=== PATIENT | male | born 1960 | race Caucasian/White ===

== ENCOUNTER 2016-10-01 08:11 | Inpatient (IN) | payer BC, MEDICARE ==
[2016-10-01] MEDS ORDERED: SODIUM CHLORIDE 0.9% 1,000 ML IV STA (08:22)
[2016-10-01] MEDS ORDERED: KETOROLAC 30 MG/ML 1 ML VIAL IVP STA (08:23)
[2016-10-01] MEDS ORDERED: ORPHENADRINE 30 MG/ML 2 ML VIAL IVP STA (08:23)
[2016-10-01] MEDS ORDERED: HYDROmorphone 1 MG/ML 1 ML SYRINGE IVP STA ×2 (08:23→11:17)
--- NOTE | 2016-10-01 08:37 | ED ---
Lower Extremity Injury HPI - General Source: patient, EMS, RN notes reviewed, old records reviewed Mode of arrival: EMS Limitations: no limitations <Angie Jimenez - Last Filed: 10/01/16 11:37> <Tino Ruggiero - Last Filed: 10/01/16 15:10> - General Chief Complaint: Extremity Injury, Lower Stated Complaint: Hip Pain Time Seen by Provider: 10/01/16 08:12 - History of Present Illness Initial Comments: Physical is a 56-year-old male presenting to the emergency Department chief complaint of left hip pain. Patient reports that yesterday he was walking and felt a sudden twinge of pain at that time. Patient reports that over the night and this morning became progressively worse. He reports that is worse with range of motion. He denies any previous hip fractures or injuries. 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 He reports he takes it faithfully. Patient has never been to this emergency department. Patient reports the pain will all of a sudden start to be established stabbing and shooting pain. Patient denies any recent fever or chills, chest pain, shortness of breath. All of his pain is located deep within the left hip. Denies any redness or swelling around the hip or leg. Patient arrived via EMS and was are any given 100 mics of fentanyl. (Angie Jimenez) - Related Data Home Medications Medication Instructions Recorded Confirmed Aspirin 81 mg PO DAILY 10/01/16 10/01/16 Atorvastatin [Lipitor] 80 mg PO DAILY 10/01/16 10/01/16 Carisoprodol [Soma] 700 mg PO QID 10/01/16 10/01/16 Cyanocobalamin/Folic AC/Vit B6 1 tab PO DAILY 10/01/16 10/01/16 [Fabb Tablet] Enalapril [Vasotec] 5 mg PO DAILY 10/01/16 10/01/16 Fenofibrate 145 mg PO DAILY 10/01/16 10/01/16 Lansoprazole 30 mg PO DAILY 10/01/16 10/01/16 Warfarin Sodium [Coumadin] 4 mg PO Q48H 10/01/16 10/01/16 Warfarin [Coumadin] 3 mg PO Q2D 10/01/16 10/01/16 Zolpidem [Ambien] 10 mg PO HS 10/01/16 10/01/16 oxyCODONE HCL 15 mg PO Q4H PRN 10/01/16 10/01/16 oxyCODONE HCL [OxyCONTIN] 40 mg PO Q6HR 10/01/16 10/01/16 Allergies Allergy/AdvReac Type Severity Reaction Status Date / Time morphine Allergy Anaphylaxis Verified 10/01/16 11:44 Review of Systems ROS Other: All systems not noted in ROS Statement are negative. <TonyAngie - Last Filed: 10/01/16 11:37> ROS Other: All systems not noted in ROS Statement are negative. <AlexandratonyasayraTino - Last Filed: 10/01/16 15:10> ROS Statement: Those systems with pertinent positive or pertinent negative responses have been documented in the HPI. Past Medical History Past Medical History: COPD, Diabetes Mellitus, Deep Vein Thrombosis (DVT), Hyperlipidemia, Hypertension, Pneumonia Additional Past Medical History / Comment(s): DVT x6, lupus, granulomas, "kidneys put out too much microalbumin", diet controlled DM History of Any Multi-Drug Resistant Organisms: None Reported Additional Past Surgical History / Comment(s): 3 right knee ortho, 3 right shoulder ortho, lower back, 2 hernia repairs, malena fundoplication Past Psychological History: No Psychological Hx Reported Smoking Status: Current every day smoker Past Alcohol Use History: None Reported Past Drug Use History: None Reported <TonyAngie steiner - Last Filed: 10/01/16 11:37> General Exam Limitations: no limitations General appearance: alert, in no apparent distress Head exam: Present: atraumatic, normocephalic, normal inspection Eye exam: Present: normal appearance, PERRL, EOMI. Absent: scleral icterus, conjunctival injection, periorbital swelling ENT exam: Present: normal exam, mucous membranes moist Neck exam: Present: normal inspection. Absent: tenderness, meningismus, lymphadenopathy Respiratory exam: Present: normal lung sounds bilaterally Cardiovascular Exam: Present: regular rate, normal rhythm, normal heart sounds. Absent: systolic murmur, diastolic murmur, rubs, gallop, clicks GI/Abdominal exam: Present: soft, normal bowel sounds. Absent: distended, tenderness, guarding, rebound, rigid Extremities exam: Present: normal inspection, full ROM, normal capillary refill. Absent: tenderness, pedal edema, joint swelling, calf tenderness Left Hip exam: Present: normal inspection. Absent: full ROM (Unable to test range of motion is patient is complaining of severe pain.), tenderness, swelling, abrasion Upper Leg exam: Present: normal inspection, full ROM, tenderness (Patient reports tenderness deep within the hip joint.) Knee exam: Present: normal inspection, full ROM Lower Leg exam: Present: normal inspection, full ROM Ankle exam: Present: normal inspection, full ROM Foot/Toe exam: Present: normal inspection, full ROM Neurovascular tendon exam: Present: no vascular compromise Back exam: Present: normal inspection Neurological exam: Present: alert, oriented X3, CN II-XII intact Psychiatric exam: Present: normal affect, normal mood Skin exam: Present: warm, dry, intact, normal color. Absent: rash <Angie Jimenez - Last Filed: 10/01/16 11:37> <Tino Ruggiero - Last Filed: 10/01/16 15:10> - General Exam Comments Initial Comments: This is a 56-year-old male. No acute distress. (Angie Jimenez) Course <Angie Jimenez - Last Filed: 10/01/16 11:37> <Tino Ruggiero - Last Filed: 10/01/16 15:10> Vital Signs 10/01/16 10/01/16 10/01/16 08:13 09:14 10:57 Temperature 98.4 F 100.5 F H Pulse Rate 75 80 81 Respiratory 24 20 Rate Blood Pressure 148/89 157/87 149/103 O2 Sat by Pulse 97 97 96 Oximetry 10/01/16 12:24 Temperature Pulse Rate 82 Respiratory 18 Rate Blood Pressure 152/79 O2 Sat by Pulse 95 Oximetry - Reevaluation(s) Reevaluation #1: 10/01/16 08:48 Patient was going to get an x-ray at this time. Patient refused to transfer from the [facility] bed to the x-ray table. X-ray brought him back here immediately did have to transfer for the patient to a portable x-ray bed. Patient was extremely difficult to transfer, and was yelling out in pain. During the transfer patient grabbed the x-ray tech. 10/01/16 08:49 (Angie Jimenez) Reevaluation #2: 10/01/16 11:10 Patient is reevaluated this time and noted have a fever 100.5. Patient be given Tylenol. Discussed with Dr. Gomez. He called Dr. Hoff who will likely come in for evaluation. (Angie Jimenez) Medical Decision Making - Lab Data Result diagrams: 10/01/16 08:24 10/01/16 08:24 - Radiology Data Radiology results: report reviewed <Angie Jimenez - Last Filed: 10/01/16 11:37> - Lab Data Result diagrams: 10/01/16 08:24 10/01/16 08:24 <Tino Ruggiero - Last Filed: 10/01/16 15:10> - Medical Decision Making This is a 56-year-old male chief complaint of left hip pain for the past seen half. He had no falls or specific injury. He was walking yesterday felt a twinge of pain in his been progressive ever since. Maps report was ran and patient does have an extensive history of using pain medication including oxycodone and OxyContin. Patient reports that this pain is different than all of his previous pain. He also has history of DVTs is on Coumadin. Patient is therapeutic with INR.. Upper ultrasound was reviewed and negative for DVT. Chest x-ray of left hip and pelvis were negative for any fracture. Patient did present with a mild fever, CT pelvis and hip was obtained with contrast. Evidence of femoral acetabular impingement. Patient case assessment Dr. Gomez. Discussed this with Dr. Hoff. His is concern for patient may have a left hip septic arthritis, as patient has an elevated white blood cell count of 15.4.. Patient will be started on Rocephin and vancomycin. Patient also be given steroids every 6 [address]. And pain management. Dr. Hoff's informed of this case by his PA Brett Fernandez. They request an MRI of the left hip without contrast. Patient will be admitted to [facility] call Dr. Maddox. ( Angie Jimenez) 56-year-old male resents with severe left hip pain. Pain was atraumatic. Patient has never had left pain before. He was walking on the pain, no specific injury or overuse. Patient does report fever last night. On initial presentation patient is in severe pain localized to the left hip. Distal pulses are intact, there is no external signs of trauma or erythema. Patient is unable to move his hip even slightly. X-rays obtained showed no acute process. DVT is obtained as the patient does have history of left lower extremity DVT in the past and is on Coumadin. And ultimately CT of the hip is ordered which shows show a femoral acetabular impingement. Is unlikely that his pain is solely from impingement. Laboratory studies reveal elevated white blood cell count. He does have a fever while in the emergency department. Case is discussed with orthopedic surgery and concern for septic arthritis is addressed. I did make an attempt to call interventional radiology for arthrocentesis. Arthrocentesis is done by orthopedic surgery at this institution. Patient is started on IV antibiotics including vancomycin and ceftriaxone. Cultures were obtained prior to antibiotics. Orthopedics placed on consult, patient is admitted to internal medicine. Diagnosis: Left hip pain, concern for septic arthritis (Tino Ruggiero) - Lab Data Lab Results 10/01/16 10/01/16 10/01/16 Range/Units 08:24 08:24 08:24 WBC 15.4 H (3.8-10.6) k/uL RBC 4.47 (4.30-5.90) m/uL Hgb 13.2 (13.0-17.5) gm/dL Hct 39.5 (39.0-53.0) % MCV 88.4 (80.0-100.0) fL MCH 29.6 (25.0-35.0) pg MCHC 33.5 (31.0-37.0) g/dL RDW 14.8 (11.5-15.5) % Plt Count 338 (150-450) k/uL Neutrophils % 77 % Lymphocytes % 15 % Monocytes % 5 % Eosinophils % 1 % Basophils % 1 % Neutrophils # 11.9 H (1.3-7.7) k/uL Lymphocytes # 2.3 (1.0-4.8) k/uL Monocytes # 0.8 (0-1.0) k/uL Eosinophils # 0.2 (0-0.7) k/uL Basophils # 0.1 (0-0.2) k/uL PT 28.1 H (9.0-12.0) sec INR 2.9 H (<1.2) APTT 40.3 H (22.0-30.0) sec Sodium 142 (137-145) mmol/L Potassium 4.0 (3.5-5.1) mmol/L Chloride 106 (98-107) mmol/L Carbon Dioxide 25 (22-30) mmol/L Anion Gap 11 mmol/L BUN 7 L (9-20) mg/dL Creatinine 0.99 (0.66-1.25) mg/dL Est GFR (MDRD) Af Amer >60 (>60 ml/min/1.73 sqM) Est GFR (MDRD) Non-Af >60 (>60 ml/min/1.73 sqM) Glucose 126 H (74-99) mg/dL Calcium 9.4 (8.4-10.2) mg/dL Lactate Dehydrogenase (313-618) U/L Urine Color Urine Appearance (Clear) Urine pH (5.0-8.0) Ur Specific [place] (1.001-1.035) Urine Protein (Negative) Urine Glucose (UA) (Negative) Urine Ketones (Negative) Urine Blood (Negative) Urine Nitrite (Negative) Urine Bilirubin (Negative) Urine Urobilinogen (<2.0) mg/dL Ur Leukocyte Esterase (Negative) Urine Opiates Screen (NotDetected) Ur Oxycodone Screen (NotDetected) Urine Methadone Screen (NotDetected) Ur Propoxyphene Screen (NotDetected) Ur Barbiturates Screen (NotDetected) U Tricyclic Antidepress (NotDetected) Ur Phencyclidine Scrn (NotDetected) Ur Amphetamines Screen (NotDetected) U Methamphetamines Scrn (NotDetected) U Benzodiazepines Scrn (NotDetected) Urine Cocaine Screen (NotDetected) U Marijuana (THC) Screen (NotDetected) 10/01/16 10/01/16 10/01/16 Range/Units 08:24 09:07 09:07 WBC (3.8-10.6) k/uL RBC (4.30-5.90) m/uL Hgb (13.0-17.5) gm/dL Hct (39.0-53.0) % MCV (80.0-100.0) fL MCH (25.0-35.0) pg MCHC (31.0-37.0) g/dL RDW (11.5-15.5) % Plt Count (150-450) k/uL Neutrophils % % Lymphocytes % % Monocytes % % Eosinophils % % Basophils % % Neutrophils # (1.3-7.7) k/uL Lymphocytes # (1.0-4.8) k/uL Monocytes # (0-1.0) k/uL Eosinophils # (0-0.7) k/uL Basophils # (0-0.2) k/uL PT (9.0-12.0) sec INR (<1.2) APTT (22.0-30.0) sec Sodium (137-145) mmol/L Potassium (3.5-5.1) mmol/L Chloride (98-107) mmol/L Carbon Dioxide (22-30) mmol/L Anion Gap mmol/L BUN (9-20) mg/dL Creatinine (0.66-1.25) mg/dL Est GFR (MDRD) Af Amer (>60 ml/min/1.73 sqM) Est GFR (MDRD) Non-Af (>60 ml/min/1.73 sqM) Glucose (74-99) mg/dL Calcium (8.4-10.2) mg/dL Lactate Dehydrogenase 400 (313-618) U/L Urine Color Yellow Urine Appearance Clear (Clear) Urine pH 7.0 (5.0-8.0) Ur Specific [place] 1.009 (1.001-1.035) Urine Protein Trace H (Negative) Urine Glucose (UA) Negative (Negative) Urine Ketones Negative (Negative) Urine Blood Negative (Negative) Urine Nitrite Negative (Negative) Urine Bilirubin Negative (Negative) Urine Urobilinogen <2.0 (<2.0) mg/dL Ur Leukocyte Esterase Negative (Negative) Urine Opiates Screen Not Detected (NotDetected) Ur Oxycodone Screen Detected H (NotDetected) Urine Methadone Screen Not Detected (NotDetected) Ur Propoxyphene Screen Not Detected (NotDetected) Ur Barbiturates Screen Not Detected (NotDetected) U Tricyclic Antidepress Not Detected (NotDetected) Ur Phencyclidine Scrn Not Detected (NotDetected) Ur Amphetamines Screen Not Detected (NotDetected) U Methamphetamines Scrn Not Detected (NotDetected) U Benzodiazepines Scrn Not Detected (NotDetected) Urine Cocaine Screen Not Detected (NotDetected) U Marijuana (THC) Screen Not Detected (NotDetected) - Radiology Data There is no acute fracture dislocation in the pelvis or left hip. Doppler ultrasound negative for DVT. CT pelvis with contrast was performed.Severe multilevel degenerative disc disease with bilateral pars defects at L5. Canal stenosis L3 4 L4 through 5 disc bulging suspected. Femoral acetabulum impingement. There is abnormal lucency within the L1 vertebral body. Systolically partially on exam. Recommended short-term follow-up with MRI to exclude interosseous lesion. Hemangioma also within the differential diagnosis. (Angie Jimenez) Disposition Time of Disposition: 11:35 <Angie Jimenez - Last Filed: 10/01/16 11:37> <Tino Ruggiero - Last Filed: 10/01/16 15:10> Clinical Impression: Left hip pain, Fever Disposition: ADMITTED IP TO THIS [facility] Condition: Stable
[2016-10-01 08:42] LABS: Basophils # (A) 0.1 k/uL (0-0.2); Basophils % (A) 1 %; CH 29.6; CHCM 33.7; Eosinophils # (A) 0.2 k/uL (0-0.7); Eosinophils % (A) 1 %; HCT 39.5 % (39.0-53.0); HDW 2.77; HGB 13.2 gm/dL (13.0-17.5); Luc # (Auto) 0.16; Luc % (Auto) 1; Lymphocytes # (A) 2.3 k/uL (1.0-4.8); Lymphocytes % (A) 15 %; MCH 29.6 pg (25.0-35.0); MCHC 33.5 g/dL (31.0-37.0); MCV 88.4 fL (80.0-100.0); Monocytes # (A) 0.8 k/uL (0-1.0); Monocytes % (A) 5 %; Neutrophils # (A) 11.9 k/uL (1.3-7.7); Neutrophils % (A) 77 %; RBC 4.47 m/uL (4.30-5.90); RDW 14.8 % (11.5-15.5); WBC 15.4 k/uL (3.8-10.6); WBC (Perox) 15.03
[2016-10-01 08:56] LABS: Anion Gap 11 mmol/L; Blood Urea Nitrogen 7 mg/dL (9-20); Calcium 9.4 mg/dL (8.4-10.2); Carbon Dioxide 25 mmol/L (22-30); Chloride 106 mmol/L (98-107); Glucose 126 mg/dL (74-99); Non-African American GFR(MDRD) >60 (>60 ml/min/1.73 sqM); Sodium 142 mmol/L (137-145)
[2016-10-01 09:04] LABS: INR 2.9 (<1.2); Partial Thromboplastin Time 40.3 sec (22.0-30.0); Prothrombin Time 28.1 sec (9.0-12.0)
[2016-10-01] MEDS ORDERED: RX INFO: IV CONTRAST WAS GIVEN 1 EACH MISC MISCELLANE PRN (09:05)
--- NOTE | 2016-10-01 09:15 | XR ---
EXAMINATION TYPE: XR Hip LT and AP Pelvis DATE OF EXAM: 10/01/2016 COMPARISON: NONE HISTORY: Pain TECHNIQUE: A single AP view of the pelvis is obtained. Two views of the left hip are obtained. FINDINGS: There is no acute fracture/dislocation evident in the pelvis. The hip and sacroiliac join ts appear symmetric and unremarkable. The overlying soft tissue appears unremarkable. Calcifications in the pelvis are likely vascular. Hypertrophic and degenerative change lower lumbar spine. Two views of left hip show no acute fracture or dislocation. No focal lytic or sclerotic lesion seen in the proximal left femur. The overlying soft tissue is unremarkable. Nonspherical morphology of t he femoral head can occasionally be seen with femoral acetabular impingement. IMPRESSION: There is no acute fracture or dislocation in the pelvis or left hip.
[2016-10-01 09:46] LABS: Appearance,Urine Clear (Clear); Bilirubin,Urine Negative (Negative); Glucose,Urine (UA) Negative (Negative); Ketones,Urine Negative (Negative); Leukocyte Esterase,Urine Negative (Negative); Nitrite,Urine Negative (Negative); Protein,Urine Trace (Negative); Specific Gravity,Urine 1.009 (1.001-1.035); UA Billing (MACRO vs. MICRO) CHEM; Urobilinogen,Urine <2.0 mg/dL (<2.0)
--- NOTE | 2016-10-01 09:46 | US ---
EXAMINATION TYPE: US venous doppler duplex LE LT DATE OF EXAM: 10/01/2016 8:26 AM COMPARISON: NONE CLINICAL HISTORY: Pain. SIDE PERFORMED: Right TECHNIQUE: The lower extremity deep venous system is examined utilizing real time linear array sonog viri with graded compression, doppler sonography and color-flow sonography. VESSELS IMAGED: External Iliac Vein (EIV) Common Femoral Vein Deep Femoral Vein Greater Saphenous Vein * Femoral Vein Popliteal Vein Small Saphenous Vein * Proximal Calf Veins (* superficial vessels) Left Leg: Negative for DVT IMPRESSION: 1. No diagnostic evidence of DVT as visualized.
--- NOTE | 2016-10-01 10:31 | CT ---
EXAMINATION TYPE: CT pelvis w con DATE OF EXAM: 10/01/2016 COMPARISON: NONE HISTORY: Left sided hip/groin pain CT DLP: 730.50 mGycm Automated exposure control for dose reduction was used. CONTRAST: Performed with IV Contrast, patient injected with 100 mL of Omnipaque 300. FINDINGS: Visualized bowel gas pattern nonspecific. Shotty adenopathy in the inguinal regions bilaterally. No free fluid. Bladder is normal appearance. Vascular phleboliths in the pelvis. Degenerative change of the spine with vacuum disc noted. Facet arthropathy noted. Spina bifida occulta left bilateral par s defects. Nonspherical morphology of the femoral head suggests femoral acetabular impingement. 1 mild L4 not well seen. Correlate for previous surgery involving the right posterior elements of L4. IMPRESSION: 1. Severe multilevel degenerative disc disease with bilateral pars defects L5. Canal stenosis L3-for L4-5 disc bulging suspected. 2. Femoral acetabular impingement. 3. There is abnormal lucency within the L1 vertebral body. Systolic partially included on exam. Recom mend short-term follow-up MRI to exclude intraosseous lesion. Hemangioma also in the differential dov gnosis.
[2016-10-01] MEDS ORDERED: ACETAMINOPHEN TAB 500 MG TAB PO STA (11:10)
[2016-10-01] MEDS ORDERED: NALOXONE 0.4 MG/ML 1 ML VIAL IV PRN ×2 (11:22→13:38)
[2016-10-01] MEDS ORDERED: HYDROmorphone 1 MG/ML 1 ML SYRINGE IV PRN (11:22)
[2016-10-01] MEDS ORDERED: ACETAMINOPHEN TAB 325 MG TAB PO PRN (11:22)
[2016-10-01] MEDS ORDERED: ONDANSETRON 4 MG/2 ML VIAL IVP PRN (11:22)
[2016-10-01] MEDS: SODIUM CHLORIDE 0.9% 1,000 ML IV SCH ×2 (11:24→23:30)
[2016-10-01] MEDS ORDERED: methylPREDNISolone SOD SUCCI 125 MG/2 ML VIAL IV STA (11:27)
[2016-10-01] MEDS ORDERED: IV VANCOMYCIN PER PHARMACY 1 EACH MISC MISCELLANE PRN ×2 (11:27→15:10)
[2016-10-01] MEDS ORDERED: NICOTINE 21MG/24HR PATCH TRANSDERM STA (11:28)
[2016-10-01] MEDS ORDERED: VANCOMYCIN 1,500 MG in SODIUM CHLORIDE 0.9% 250 ML IVPB ONE (12:30)
[2016-10-01] MEDS ORDERED: ALPRAZolam 0.25 MG TAB PO PRN (13:41)
[2016-10-01 13:50] VITALS: BMI 26.6
[2016-10-01] MEDS: KETOROLAC 30 MG/ML 1 ML VIAL IVP PRN ×2 (13:50→19:08)
--- NOTE | 2016-10-01 15:03 | P.HPIM ---
History of Present Illness H&P Date: 10/01/16 Chief Complaint: Severe sudden onset left hip pain 56-year-old male with past medical history of lupus anticoagulant, and hypertension. Patient presented with sudden onset left groin pain sharp in nature 10 out of 10 in severity radiating to the left knee not associated with any injury pain gets worse with ambulation and weightbearing improves with immobilization. Patient denies any similar pains in the past. Reports that he was standing up last night when all of a sudden the pain hits him he tried to follow her through the night however pain persisted and Worsening for Which Psych from the Hospital. This Pain Was Associated Initially with Some Tingling in His Left Lower Leg However That Has Resolved, despite That She Still Reporting Some Subjective Weakness in His Left hip muscles particularly that could be due to fear of pain. Patient reports associated subjective fever at home took his temperature was around 99 Fahrenheit and he reports some chills otherwise he denies any skin changes any swelling in the area or any traumas. In the emergency department patient underwent venous duplex ultrasound of the lower left lower extremity which showed no evidence of acute DVT, had left hip x -ray showed no acute process, computed tomography scan of the pelvis showed multilevel degenerative disc disease with bilateral pars defects around L5 and canal stenosis L3-4, with suspected disc bulging around L4 5, also showed femoral acetabular impingement with abnormal lucency over L1 vertebral body. Patient reporting fevers and having severe pain in his left hip limiting range of motion septic arthritis was also suspected, blood cultures were obtained, hip arthrocentesis was not performed awaiting interventional radiology, vancomycin was started, or to consultation is pending. Otherwise patient does report chronic diffused joint pain for which she takes multiple pain medications including Soma, oxycodone. Patient did have a documented fever in the ER with a temperature of 100.5 Review of Systems Constitutional: Patient reports fever,but no chills, no night sweating, no significant weight changes Eyes: Patient reports no visual changes, no eye pain ENT: Patient reports no ear pain, no rhinorrhea, no sore throat Cardiovascular: Patient reports no chest pain, no exertional dyspnea, no peripheral leg edema, no orthopnea, no paroxysmal nocturnal dyspnea Respiratory:Patient reports no cough, no wheezing, no shortness of breath Gastrointestinal: Patient reports no diarrhea, no constipation, no nausea no vomiting, no abdominal pain Genitourinary: Patient reports no dysuria, no hematuria, no changes in urinary habits, no genital lesions Musculoskeletal: Patient reports no muscle pain, , but does report diffuse joint pain, and left hip pain as in HPI Psychiatric: Patient reports no changes in mood or memory, no suicidal ideation , no anxiety Endocrine: Patient reports no heat intolerance, no cold intolerance, no excessive thirst, no polyuria Neurological: Patient reports no focal neurologic deficits, no weakness, no numbness. He does report possible tingling in his left leg that has resolved Hem/Lymphatic: Patient reports no bleeding tendency, no bruising, no swollen lymph glands Allergic/Immun: Patient reports no recent allergic reactions Skin: Patient reports no rashes, no pruritis, no ulcers Past Medical History Past Medical History: COPD, Diabetes Mellitus, Deep Vein Thrombosis (DVT), Hyperlipidemia, Hypertension, Pneumonia Additional Past Medical History / Comment(s): DVT x6, lupus, granulomas, "kidneys put out too much microalbumin", diet controlled DM History of Any Multi-Drug Resistant Organisms: None Reported Additional Past Surgical History / Comment(s): 3 right knee ortho, 3 right shoulder ortho, lower back, 2 hernia repairs, malena fundoplication Past Psychological History: No Psychological Hx Reported Smoking Status: Current every day smoker Past Alcohol Use History: None Reported Past Drug Use History: None Reported Additional History: Patient is retired since 2004 he lives with his son and - Past Family History Mother Brother(s) Family Medical History: Cancer Brother(s) Additional Family Medical History / Comment(s): Non-Hodgkin lymphoma Medications and Allergies Home Medications and Allergies Comment(s): Home medications were reviewed Home Medications Medication Instructions Recorded Confirmed Type Aspirin 81 mg PO DAILY 10/01/16 10/01/16 History Atorvastatin [Lipitor] 80 mg PO DAILY 10/01/16 10/01/16 History Carisoprodol [Soma] 700 mg PO QID 10/01/16 10/01/16 History Cyanocobalamin/Folic AC/Vit B6 1 tab PO DAILY 10/01/16 10/01/16 History [Fabb Tablet] Enalapril [Vasotec] 5 mg PO DAILY 10/01/16 10/01/16 History Fenofibrate 145 mg PO DAILY 10/01/16 10/01/16 History Lansoprazole 30 mg PO DAILY 10/01/16 10/01/16 History Warfarin Sodium [Coumadin] 4 mg PO Q48H 10/01/16 10/01/16 History Warfarin [Coumadin] 3 mg PO Q2D 10/01/16 10/01/16 History Zolpidem [Ambien] 10 mg PO HS 10/01/16 10/01/16 History oxyCODONE HCL 15 mg PO Q4H PRN 10/01/16 10/01/16 History oxyCODONE HCL [OxyCONTIN] 40 mg PO Q6HR 10/01/16 10/01/16 History Allergies Allergy/AdvReac Type Severity Reaction Status Date / Time morphine Allergy Anaphylaxis Verified 10/01/16 11:44 Physical Exam Vitals: Vital Signs Temp Pulse Pulse Resp BP BP Pulse Ox 10/01/16 13:02 98.6 F 84 16 144/85 96 10/01/16 12:24 82 18 152/79 95 10/01/16 10:57 100.5 F H 81 149/103 96 10/01/16 09:14 80 20 157/87 97 10/01/16 08:13 98.4 F 75 24 148/89 97 Intake and Output 09/30/16 10/01/16 10/01/16 22:59 06:59 14:59 Other: Weight 79.379 kg Patient Weight 10/02/16 06:59 Weight 79.379 kg Constitutional: No acute distress, conversant, pleasant Eyes: Anicteric sclerae, moist conjunctiva, no lid-lag Pupils equal round reactive to light ENMT: NC/AT Oropharynx clear, no erythema, exudates Neck: Supple, FROM, no masses, or JVD No carotid bruits No thyromegaly Lungs: Clear to auscultation Clear to percussion Normal respiratory effort, no accessory muscle use Cardiovascular: Heart regular in rate and rhythm, No murmurs, gallops, or rubs No peripheral edema Abdominal: Soft Nontender, no guarding, rebound or rigidity Abdomen moving with respiration Normoactive bowel sounds No hepatomegaly, No splenomegaly No palpable mass No abdominal wall hernia noted Skin: Normal temperature, tone, texture, turgor No induration No subcutaneous nodules No rash, lesions No ulcers Extremities: No digital cyanosis No clubbing Pedal pulses intact and symmetrical Radial pulses intact and symmetrical Gait not examined, due to patient's severe left hip pain and inability to weight bear No calf tenderness Severe localized tenderness to palpation of the anterior left groin, no skin changes no warmth to the touch no open wounds no palpable masses in that area. Patient refused passive range of motion testing and his left hip due to fear of pain. Sitting up straight which worsened the pain due to stretching of back muscle, resting position for the patient was slight abduction of the left hip with external rotation. Right lower extremity is with full active range of motion with no limitations Psychiatric: Alert and oriented to person, place and time Appropriate affect Intact judgement Neuro Muscles Strength 5/5 in all 4 extremities except for the left lower extremity due to severe left hip pain Sensation to light touch grossly present throughout Cranial nerves II-XII grossly intact No focal sensory deficits Lymphatics: no palpable cervical or supraclavicular , or inguinal lymph nodes Results Results: Labs reviewed, imaging reviewed CBC & Chem 7: 10/01/16 08:24 10/01/16 08:24 Labs: Abnormal Lab Results - Last 24 Hours (Table) 10/01/16 10/01/16 10/01/16 Range/Units 08:24 08:24 08:24 WBC 15.4 H (3.8-10.6) k/uL Neutrophils # 11.9 H (1.3-7.7) k/uL PT 28.1 H (9.0-12.0) sec INR 2.9 H (<1.2) APTT 40.3 H (22.0-30.0) sec BUN 7 L (9-20) mg/dL Glucose 126 H (74-99) mg/dL Urine Protein (Negative) Ur Oxycodone Screen (NotDetected) 10/01/16 10/01/16 Range/Units 09:07 09:07 WBC (3.8-10.6) k/uL Neutrophils # (1.3-7.7) k/uL PT (9.0-12.0) sec INR (<1.2) APTT (22.0-30.0) sec BUN (9-20) mg/dL Glucose (74-99) mg/dL Urine Protein Trace H (Negative) Ur Oxycodone Screen Detected H (NotDetected) Thrombosis Risk Factor Assmnt - DVT/VTE Prophylaxis DVT/VTE Prophylaxis: Pharmacologic Prophylaxis ordered - Choose All That Apply Each Risk Factor Represents 3 Points: History of DVT/PE, Positive Lupus Anticoagulant Thrombosis Risk Factor Assessment Total Risk Factor Score: 6 Thrombosis Risk Factor Assessment Level: High Risk Assessment and Plan (1) Left hip pain Narrative/Plan: r/o septic arthritis on vancomycin blood cultures sent pending left hip arthrocentesis pending ortho evaluation pain control IVF hydration imagin results reviewed pending ESR and CRP Status: Acute (2) SIRS (systemic inflammatory response syndrome) Narrative/Plan: r/o left hip septic arthritis Status: Acute (3) Diabetes mellitus Narrative/Plan: dietary control check A1C Status: Chronic (4) Lupus anticoagulant disorder Narrative/Plan: continue with coumadin dosing by pharmacy Status: Chronic (5) DVT prophylaxis Narrative/Plan: coumadin dosing by pharmacy due to history of lupus anticoagulant Status: Acute (6) Chronic pain Narrative/Plan: continue home medications Status: Acute (7) Hypertension Narrative/Plan: continue lisinopril controlled Status: Chronic Plan: full code status Time with Patient: Greater than 30
[2016-10-01 15:31] LABS: Hemoglobin A1C 6.5 % (4.2-6.1)
[2016-10-01] MEDS: CARISOPRODOL 350 MG TAB PO SCH ×2 (15:32→20:09)
[2016-10-01] MEDS ORDERED: WARFARIN 2 MG TAB PO SCH (18:00)
[2016-10-01] MEDS ORDERED: CARISOPRODOL 350 MG TAB PO SCH (18:00)
[2016-10-01] MEDS: methylPREDNISolone SOD SUCCI 125 MG/2 ML VIAL IV SCH ×2 (18:18→23:29)
[2016-10-01] MEDS: oxyCODONE ER 20 MG TAB.ER.12H PO SCH ×2 (18:19→23:33)
[2016-10-01] MEDS: ATORVASTATIN 80 MG TAB PO SCH (20:08)
[2016-10-01] MEDS: VANCOMYCIN 1,500 MG in SODIUM CHLORIDE 0.9% 250 ML IVPB SCH (20:18)
[2016-10-01] MEDS ORDERED: ZOLPIDEM 10 MG TAB PO SCH (21:00)
[2016-10-01] MEDS ORDERED: diphenhydrAMINE 50 MG CAP PO SCH (21:00)
[2016-10-02] MEDS: KETOROLAC 30 MG/ML 1 ML VIAL IVP PRN ×2 (01:02→06:19)
[2016-10-02] MEDS: oxyCODONE ER 20 MG TAB.ER.12H PO SCH (05:30)
[2016-10-02] MEDS: methylPREDNISolone SOD SUCCI 125 MG/2 ML VIAL IV SCH ×2 (05:30→11:34)
[2016-10-02] MEDS: CARISOPRODOL 350 MG TAB PO SCH ×2 (05:31→10:31)
[2016-10-02] MEDS: ATORVASTATIN 80 MG TAB PO SCH (06:20)
[2016-10-02 07:30] LABS: Basophils % (A) 0 %; CH 29.7; CHCM 33.2; Eosinophils % (A) 0 %; HDW 2.71; HGB 11.9 gm/dL (13.0-17.5); Luc % (Auto) 1; Lymphocytes # (A) 1.4 k/uL (1.0-4.8); Lymphocytes % (A) 8 %; MCH 28.8 pg (25.0-35.0); MCHC 32.1 g/dL (31.0-37.0); Mean Platelet Volume 8.2; Monocytes # (A) 0.8 k/uL (0-1.0); Monocytes % (A) 5 %; Neutrophils # (A) 15.4 k/uL (1.3-7.7); Neutrophils % (A) 87 %; RBC 4.11 m/uL (4.30-5.90); WBC 17.8 k/uL (3.8-10.6); WBC (Perox) 19.29
[2016-10-02] MEDS ORDERED: PANTOPRAZOLE 40 MG TABLET PO SCH (07:30)
[2016-10-02 07:35] LABS: INR 2.4 (<1.2); Prothrombin Time 23.4 sec (9.0-12.0)
[2016-10-02 07:52] LABS: ALT 34 U/L (21-72); AST 28 U/L (17-59); Alkaline Phosphatase 52 U/L (38-126); Anion Gap 9 mmol/L; Blood Urea Nitrogen 10 mg/dL (9-20); Calcium 9.3 mg/dL (8.4-10.2); Carbon Dioxide 22 mmol/L (22-30); Chloride 111 mmol/L (98-107); Glucose 147 mg/dL (74-99); Magnesium 1.8 mg/dL (1.6-2.3); Non-African American GFR(MDRD) >60 (>60 ml/min/1.73 sqM); Potassium 4.1 mmol/L (3.5-5.1); Sodium 142 mmol/L (137-145); Total Bilirubin 0.3 mg/dL (0.2-1.3); Total Protein 6.4 g/dL (6.3-8.2)
[2016-10-02] MEDS: VANCOMYCIN 1,500 MG in SODIUM CHLORIDE 0.9% 250 ML IVPB SCH (07:57)
[2016-10-02] MEDS: SODIUM CHLORIDE 0.9% 1,000 ML IV SCH (08:00)
--- NOTE | 2016-10-02 08:28 | P.CNOR ---
History of Present Illness - HPI Consult date: 10/02/16 Consult reason: other History of present illness: Patient's 56-year-old male with history of chronic pain issues. He presented yesterday to the emergency room due to left hip pain. He said that 2 days ago he started having some aching in his pain and by yesterday he was unable to stand walk around or really move his hip. The pain was in his left groin. He says he has a history of DVTs and multiple blood clots and thought that that might be the case for him. He also has history of back pain. He denies any new radiculopathy due to her weakness in his lower extremity he is really concerned about the pain in his left hip. He had an elevated white blood count at 15 and had concerned about the possibility of septic hip arthritis. The patient was admitted to medicine and we evaluated him and imaging and he was not felt to fit a specific clinical picture for septic arthritis and was started on medical management with antibiotics and steroids. This morning the patient says that he feels great. He said that the overnight the pain resolved and he is able to move around quite well he has been able to train the rims admitted to the hallway without any significant difficulty he is able to internally extra rotated his hip well without any problems he is voiding freely he denies any numbness tingling or weakness in his legs. Review of Systems As per HPI. Currently patient says his hip is doing very well. He still has some mild soreness but he has significant good range of motion without any pain. He denies any neurologic deficits or weakness in his legs. Denies any changes in bowel bladder function. Denies any fevers chills. Past Medical History Past Medical History: COPD, Diabetes Mellitus, Deep Vein Thrombosis (DVT), Hyperlipidemia, Hypertension, Pneumonia Additional Past Medical History / Comment(s): DVT x6, lupus, granulomas, "kidneys put out too much microalbumin", diet controlled DM History of Any Multi-Drug Resistant Organisms: None Reported Additional Past Surgical History / Comment(s): 3 right knee ortho, 3 right shoulder ortho, lower back, 2 hernia repairs, malena fundoplication Past Psychological History: No Psychological Hx Reported Smoking Status: Current every day smoker Past Alcohol Use History: None Reported Past Drug Use History: None Reported - Past Family History Mother Brother(s) Family Medical History: Cancer Brother(s) Additional Family Medical History / Comment(s): Non-Hodgkin lymphoma Medications and Allergies Home Medications Medication Instructions Recorded Confirmed Type Aspirin 81 mg PO DAILY 10/01/16 10/01/16 History Atorvastatin [Lipitor] 80 mg PO DAILY 10/01/16 10/01/16 History Carisoprodol [Soma] 700 mg PO QID 10/01/16 10/01/16 History Cyanocobalamin/Folic AC/Vit B6 1 tab PO DAILY 10/01/16 10/01/16 History [Fabb Tablet] Enalapril [Vasotec] 5 mg PO DAILY 10/01/16 10/01/16 History Fenofibrate 145 mg PO DAILY 10/01/16 10/01/16 History Lansoprazole 30 mg PO DAILY 10/01/16 10/01/16 History Warfarin Sodium [Coumadin] 4 mg PO Q48H 10/01/16 10/01/16 History Warfarin [Coumadin] 3 mg PO Q2D 10/01/16 10/01/16 History Zolpidem [Ambien] 10 mg PO HS 10/01/16 10/01/16 History oxyCODONE HCL 15 mg PO Q4H PRN 10/01/16 10/01/16 History oxyCODONE HCL [OxyCONTIN] 40 mg PO Q6HR 10/01/16 10/01/16 History Allergies Allergy/AdvReac Type Severity Reaction Status Date / Time morphine Allergy Anaphylaxis Verified 10/01/16 11:44 Physical Examination Osteopathic Statement: *. No significant issues noted on an osteopathic structural exam other than those noted in the History and Physical/Consult. - Hip left Gait: normal (Have patient's left hip he has no pain with internal and external rotation he is able to weight-bear using able stand on one leg he is able to do a single leg squat on the left. His thigh and calf soft nontender he has sustained dorsal to plantar flexion and EHL and hip flexion and knee extension with 5 out of 5 strength. His right lower extremity is full active and passive range motion as do his bilateral upper extremity. His chest has good excursion with the parents ration and expiration his abdomen soft nontender his neck is nontender to palpation range of motion his back is nontender) Results - Labs Labs: Abnormal Lab Results - Last 24 Hours (Table) 10/01/16 10/01/16 10/01/16 Range/Units 08:24 08:24 08:24 WBC 15.4 H (3.8-10.6) k/uL RBC (4.30-5.90) m/uL Hgb (13.0-17.5) gm/dL Hct (39.0-53.0) % Neutrophils # 11.9 H (1.3-7.7) k/uL PT 28.1 H (9.0-12.0) sec INR 2.9 H (<1.2) APTT 40.3 H (22.0-30.0) sec Chloride (98-107) mmol/L BUN 7 L (9-20) mg/dL Glucose 126 H (74-99) mg/dL Hemoglobin A1c (4.2-6.1) % C-Reactive Protein (<10.0) mg/L Albumin (3.5-5.0) g/dL Urine Protein (Negative) Ur Oxycodone Screen (NotDetected) 10/01/16 10/01/16 10/01/16 Range/Units 08:24 08:24 09:07 WBC (3.8-10.6) k/uL RBC (4.30-5.90) m/uL Hgb (13.0-17.5) gm/dL Hct (39.0-53.0) % Neutrophils # (1.3-7.7) k/uL PT (9.0-12.0) sec INR (<1.2) APTT (22.0-30.0) sec Chloride (98-107) mmol/L BUN (9-20) mg/dL Glucose (74-99) mg/dL Hemoglobin A1c 6.5 H (4.2-6.1) % C-Reactive Protein 15.4 H (<10.0) mg/L Albumin (3.5-5.0) g/dL Urine Protein Trace H (Negative) Ur Oxycodone Screen (NotDetected) 10/01/16 10/02/16 10/02/16 Range/Units 09:07 06:44 06:44 WBC 17.8 H (3.8-10.6) k/uL RBC 4.11 L (4.30-5.90) m/uL Hgb 11.9 L (13.0-17.5) gm/dL Hct 37.0 L (39.0-53.0) % Neutrophils # 15.4 H (1.3-7.7) k/uL PT 23.4 H (9.0-12.0) sec INR 2.4 H (<1.2) APTT (22.0-30.0) sec Chloride (98-107) mmol/L BUN (9-20) mg/dL Glucose (74-99) mg/dL Hemoglobin A1c (4.2-6.1) % C-Reactive Protein (<10.0) mg/L Albumin (3.5-5.0) g/dL Urine Protein (Negative) Ur Oxycodone Screen Detected H (NotDetected) 10/02/16 Range/Units 06:44 WBC (3.8-10.6) k/uL RBC (4.30-5.90) m/uL Hgb (13.0-17.5) gm/dL Hct (39.0-53.0) % Neutrophils # (1.3-7.7) k/uL PT (9.0-12.0) sec INR (<1.2) APTT (22.0-30.0) sec Chloride 111 H (98-107) mmol/L BUN (9-20) mg/dL Glucose 147 H (74-99) mg/dL Hemoglobin A1c (4.2-6.1) % C-Reactive Protein (<10.0) mg/L Albumin 3.4 L (3.5-5.0) g/dL Urine Protein (Negative) Ur Oxycodone Screen (NotDetected) H & H 10/01/16 10/02/16 Range/Units 08:24 06:44 Hgb 13.2 11.9 L (13.0-17.5) gm/dL Hct 39.5 37.0 L (39.0-53.0) % Coagulation 10/01/16 10/02/16 Range/Units 08:24 06:44 INR 2.9 H 2.4 H (<1.2) Result Diagrams: 10/02/16 06:44 10/02/16 06:44 - Diagnostic results Hip CT: report reviewed, image reviewed (X-rays and a computed tomography scan of the patient's hip and pelvis reviewed. There is no evidence of any fluid collection. There is no evidence of any fracture or dislocation. There is no widening of the joint. He has some impingement in his left femoral acetabular joint) Assessment and Plan Plan: Left hip pain resolved No acute evidence of septic arthrosis of the hip History of chronic pain History of DVTs The patient's symptoms in his left hip have resolved and he is anxious to walk around and go home today. From an orthopedic standpoint I think it is okay for him to be discharged home today. He is not requiring any acute surgery for his hip. He did have good improvement with his IV steroid and I think he should continue with oral steroids on a tapering dose and we'll prescribe this for him. He does not appear to have any acute infectious issue at his hip and I would defer any antibiotic regimen to medicine service. It is okay for him to follow up on an as-needed basis.
[2016-10-02 08:42] VITALS: BP 114/75; PULSE 87; RESP 16; TEMP 98.2
[2016-10-02] MEDS ORDERED: FOLIC AC PO SCH (09:00)
[2016-10-02] MEDS ORDERED: FENOFIBRATE 160 MG TAB PO SCH (09:00)
[2016-10-02] MEDS ORDERED: NICOTINE 14MG/24HR PATCH TRANSDERM SCH (09:00)
[2016-10-02] MEDS ORDERED: VIT B6 PO SCH (09:00)
[2016-10-02] MEDS ORDERED: CYANOCOBALAMIN PO SCH (09:00)
[2016-10-02] MEDS ORDERED: ASPIRIN 81 MG CHEW PO SCH (09:00)
[2016-10-02] MEDS ORDERED: LISINOPRIL 10 MG TAB PO SCH (09:00)
[2016-10-02] MEDS ORDERED: WARFARIN 3 MG TAB PO SCH (18:00)
--- NOTE | 2016-10-02 19:38 | P.DS ---
Providers Date of admission: 10/01/16 11:51 Expected date of discharge: 10/02/16 Attending physician: Andrae Maurer MD Consults: 10/01/16 11:22 Consult Physician Stat Consulting Provider: Rosina Hoff Consult Reason/Comments: Septic Left Hip Do you want consulting provider notified?: Already Contacted Primary care physician: Donato Pak, DO - Discharge Diagnosis(es) (1) Left hip pain Status: Resolved (2) SIRS (systemic inflammatory response syndrome) Status: Resolved (3) Diabetes mellitus Status: Chronic (4) Lupus anticoagulant disorder Status: Chronic (5) DVT prophylaxis Status: Acute (6) Chronic pain Status: Acute (7) Hypertension Status: Chronic Hospital Course: 56-year-old male with past medical history of lupus anticoagulation and multiple DVTs in the past. Patient presented with sudden onset left hip pain, after evaluation in the ED patient was suspected to have septic arthritis further workup has revealed impingement of the left acetabulum he was admitted for further care and evaluation by orthopedics. Patient was initiated on vancomycin and IV steroids. After 12 hours of observation patient symptoms has improved dramatically, after discussion of the case with orthopedic they felt that there is no underlying infectious process patient this morning showed complete resolution of his symptoms. Patient remains afebrile with stable vital signs. Patient continued on Coumadin due to his history of lupus anticoagulation with INR remaining therapeutic. Constitutional: vital signs stable, Not in acute distress, pleasant, conversant Lungs: Clear to auscultation bilaterally, clear to percussion, normal respiratory effort no use of accessory muscles Cardiovascular: Regular rate and rhythm, no murmurs, no gallops, no rubs, no peripheral edema Extremities: Complete resolution of left hip pain with patient having full range of motion over the left And able to weight-bear and walk without limitation. There is no tenderness to palpation of the left hip today there is no skin changes no swelling nor erythema no warmth to the touch. There is no leg edema bilaterally no tenderness to palpation of the calf muscles Psych: Alert, oriented to place, person and time Patient will be discharged on tapering doses of steroids. Antibiotics were stopped Blood cultures are negative to date Patient is to continue his home pain medications for his chronic joint pains. Patient to follow up periodically with orthopedics as needed. Patient to follow -up with his PCP I recommended to the patient to avoid using fenofibrate with a statin medication as it might increase risk of rhabdomyolysis. There was no evidence of rhabdomyolysis during the stay More than 35 minutes were spent discharging this patient, and more than 50% of the time was spent in counseling the patient and family and in coordinating care. Pertinent Studies: Computed tomography scan of the pelvis was suggested impingement of the left acetabulum Patient Condition at Discharge: Stable Plan - Discharge Summary New Discharge Prescriptions: New Famotidine [Pepcid] 20 mg PO BID #24 tablet predniSONE 20 mg PO DIRECTED #24 tab diphenhydrAMINE [Benadryl] 50 mg PO HS cap Nicotine 14Mg/24Hr Patch [Habitrol] 1 patch TRANSDERM DAILY #14 patch oxyCODONE HCL [OxyIR] 15 mg PO Q4H PRN tab PRN Reason: Pain Continue oxyCODONE HCL [OxyCONTIN] 40 mg PO Q6HR Zolpidem [Ambien] 10 mg PO HS Warfarin [Coumadin] 3 mg PO Q2D Lansoprazole 30 mg PO DAILY Fenofibrate 145 mg PO DAILY Enalapril [Vasotec] 5 mg PO DAILY Cyanocobalamin/Folic AC/Vit B6 [Fabb Tablet] 1 tab PO DAILY Carisoprodol [Soma] 700 mg PO QID Atorvastatin [Lipitor] 80 mg PO DAILY Aspirin 81 mg PO DAILY Warfarin Sodium [Coumadin] 4 mg PO Q48H oxyCODONE HCL 15 mg PO Q4H PRN PRN Reason: Pain Discharge Medication List Aspirin 81 mg PO DAILY 10/01/16 [History] Atorvastatin [Lipitor] 80 mg PO DAILY 10/01/16 [History] Carisoprodol [Soma] 700 mg PO QID 10/01/16 [History] Cyanocobalamin/Folic AC/Vit B6 [Fabb Tablet] 1 tab PO DAILY 10/01/16 [History] Enalapril [Vasotec] 5 mg PO DAILY 10/01/16 [History] Fenofibrate 145 mg PO DAILY 10/01/16 [History] Lansoprazole 30 mg PO DAILY 10/01/16 [History] Warfarin Sodium [Coumadin] 4 mg PO Q48H 10/01/16 [History] Warfarin [Coumadin] 3 mg PO Q2D 10/01/16 [History] Zolpidem [Ambien] 10 mg PO HS 10/01/16 [History] oxyCODONE HCL 15 mg PO Q4H PRN 10/01/16 [History] oxyCODONE HCL [OxyCONTIN] 40 mg PO Q6HR 10/01/16 [History] Famotidine [Pepcid] 20 mg PO BID #24 tablet 10/02/16 [Rx] Nicotine 14Mg/24Hr Patch [Habitrol] 1 patch TRANSDERM DAILY #14 patch 10/02/16 [ Rx] diphenhydrAMINE [Benadryl] 50 mg PO HS cap 10/02/16 [Rx] oxyCODONE HCL [OxyIR] 15 mg PO Q4H PRN tab 10/02/16 [Rx] predniSONE 20 mg PO DIRECTED #24 tab 10/02/16 [Rx] Follow up Appointment(s)/Referral(s): Donato Pak DO [Primary Care Provider] - 1-2 days Rosina Hoff DO [Doctor of Osteopathic Medicine] - 1 Week Patient Instructions/Handouts: Hip Pain (GEN) Activity/Diet/Wound Care/Special Instructions: activity as tolerated, diabetic diet Care Plan Goals (MU): tapering dose of steroid Discharge Disposition: HOME SELF-CARE
[2016-10-03] MEDS ORDERED: VANCOMYCIN TROUGH DUE 1 EACH MISC MISCELLANE ONE (08:00)
[2016-10-03] MEDS ORDERED: WARFARIN 3 MG TAB PO SCH (18:00)
== END 2016-10-02 12:40 | disposition home or self-care (01) | DRG 556 ==
LOC: EC 08:11 → 5MS5E 11:51
PROVIDERS: ADMIT Internal Medicine; ATTEND Internal Medicine
DX: M25.852 Other specified joint disorders, left hip (principal); D68.62 Lupus anticoagulant syndrome; R65.10 Systemic inflammatory response syndrome (SIRS) of non-infectious origin without acute organ dysfunction; I10 Essential (primary) hypertension; E11.9 Type 2 diabetes mellitus without complications; D72.829 Elevated white blood cell count, unspecified; M48.06 Spinal stenosis, lumbar region; R50.9 Fever, unspecified; R20.2 Paresthesia of skin; G89.29 Other chronic pain; M25.552 Pain in left hip; M51.26 Other intervertebral disc displacement, lumbar region; R53.1 Weakness; F17.200 Nicotine dependence, unspecified, uncomplicated; E78.5 Hyperlipidemia, unspecified; Z86.718 Personal history of other venous thrombosis and embolism; Z79.01 Long term (current) use of anticoagulants; Z79.82 Long term (current) use of aspirin; Z79.899 Other long term (current) drug therapy; Z80.7 Family history of other malignant neoplasms of lymphoid, hematopoietic and related tissues; Z88.5 Allergy status to narcotic agent; Z87.09 Personal history of other diseases of the respiratory system; Z87.01 Personal history of pneumonia (recurrent); Z79.891 Long term (current) use of opiate analgesic; Z51.81 Encounter for therapeutic drug level monitoring
CPT/HCPCS: 36415; 72193; 73502; 80048; 80053; 80306; 81003; 83036; 83615; 83735; 85025; 85610; 85652; 85730; 86140; 87040; 96361; 96365; 96375; 96376; 99285

== ENCOUNTER → 2019-03-11 | Outpatient (CLI) | payer BC, MEDICARE ==
--- NOTE | 2019-03-11 13:03 | CT ---
EXAMINATION TYPE: CT chest w con DATE OF EXAM: 03/11/2019 COMPARISON: None HISTORY: high white blood cell, low red blood cell counts, history of lupus. CT DLP: 572 mGycm Automated exposure control for dose reduction was used. CONTRAST: CT scan of the chest is performed with IV Contrast, patient injected with 100 mL of Isovue 300. FINDINGS: LUNGS: The lungs are grossly clear, there is no concerning parenchymal mass or nodule identified. T here is no pleural effusion or pneumothorax seen. The tracheobronchial tree is patent. MEDIASTINUM: There are no greater than 1 cm hilar or mediastinal lymph nodes. No pericardial effusi on is seen. Thoracic aorta is of normal caliber. The heart is not enlarged. UPPER ABDOMEN: No significant abnormality appreciated. Small hiatal hernia demonstrated. OTHER: No additional significant abnormality is seen. IMPRESSION: No evidence for focal infiltrate. Small hiatal hernia.
== END | disposition home or self-care (01) ==
LOC: RADCTMAIN 12:05
PROVIDERS: ATTEND Internal Medicine Hematology & Oncology
DX: K44.9 Diaphragmatic hernia without obstruction or gangrene (principal); D72.829 Elevated white blood cell count, unspecified; D68.312 Antiphospholipid antibody with hemorrhagic disorder; R53.83 Other fatigue
CPT/HCPCS: 71260; Q9967